=== PATIENT | female | born 1960 | race Caucasian/White ===

== ENCOUNTER 2017-08-01 11:29 | Emergency (ER) | payer BC ==
[~2017-08-01] VITALS: Ht 170.2 cm; Wt 68.0 kg
[2017-08-01] MEDS ORDERED: IV NORMAL SALINE 500 ML BAG IV ONE (11:45)
[2017-08-01 11:57] LABS: BASOPHILS % (AUTO) 0.3 % (0.0-2.0); EOSINOPHILS # (AUTO) 0.1 K/uL (0.0-0.7); EOSINOPHILS % (AUTO) 0.9 % (0.0-7.0); HEMATOCRIT 40.2 % (31.2-41.9); HEMOGLOBIN 13.1 g/dL (10.9-14.3); LYMPHOCYTES # (AUTO) 3.6 K/uL (20.0-40.0); LYMPHOCYTES % (AUTO) 32.2 % (20.5-51.5); MEAN CORPUSCULAR HEMOGLOBIN 29.2 uug (24.7-32.8); MEAN CORPUSCULAR HGB CONC 33 g/dL (32.3-35.6); MEAN CORPUSCULAR VOLUME 89.6 fL (75.5-95.3); MONOCYTES # (AUTO) 0.6 K/uL (2.0-10.0); NEUTROPHILS % (AUTO) 61.6 % (38.5-71.5); PLATELET COUNT (AUTO) 234 K/uL (179-408); RED BLOOD CELL COUNT(AUTO) 4.48 MIL/uL (3.63-4.92); WHITE BLOOD COUNT (AUTO) 11.3 K/uL (3.8-11.8)
--- NOTE | 2017-08-01 12:03 | NUR ---
OUT OF ER FOR CT.
[2017-08-01] MEDS ORDERED: TEMA15CA PO (12:05)
[2017-08-01] MEDS ORDERED: ONDA8TAB6 PO (12:05)
[2017-08-01] MEDS ORDERED: LEVO175T2 PO (12:05)
[2017-08-01] MEDS ORDERED: HYDR-548 PO (12:05)
[2017-08-01] MEDS ORDERED: DIAZ5TAB4 PO (12:05)
[2017-08-01] MEDS ORDERED: NYST5ORA PO (12:05)
[2017-08-01 12:07] LABS: ETHANOL < 3 MG/DL (0-0)
[2017-08-01 12:08] LABS: CARBON DIOXIDE 21 mmol/L (21-32); CHLORIDE 105 mmol/L (98-107); CREATININE 0.9 mg/dL (0.6-1.3); GLUCOSE 215 mg/dL (74-106); POTASSIUM 2.9 mmol/L (3.5-5.1); UREA NITROGEN, BLOOD 22 mg/dL (7-18)
[2017-08-01 12:21] LABS: ALANINE AMINOTRANSFERASE 20 U/L (14-59); ALKALINE PHOSPHATASE 89 U/L (50-136); ASPARTATE AMINOTRANSFERASE 21 U/L (15-37); BILIRUBIN,DIRECT 0.1 mg/dL (0.0-0.2); BILIRUBIN,TOTAL 0.4 mg/dL (0.2-1.0); TOTAL PROTEIN, SERUM 6.6 g/dL (6.4-8.2)
[2017-08-01 12:22] LABS: PHENOBARBITAL < 1.0 ug/mL (15.0-39.0); PHENYTOIN (DILANTIN) < 0.5 ug/mL (10.0-20.0)
--- NOTE | 2017-08-01 12:31 | NUR ---
PT IS AWAKE AND VERBALLY RESPONSIVE. UNABLE TO RECALL EVENTS BUT ABLE TO RECALL THING PRIOR TO SEIZURES. PT'S ROOM MATE AT THE BEDSIDE.
[2017-08-01 12:59] LABS: *BILIRUBIN,URIN NEGATIVE (NEGATIVE); *BLOOD, URINE 2+ (NEGATIVE); *CLARITY,URINE CLEAR (CLEAR); *COLOR,URINE LIGHT YELLOW (YELLOW); *KETONES,URINE NEGATIVE (NEGATIVE); *PROTEIN,URINE NEGATIVE (NEGATIVE); *UROBILINOGEN,URINE 0.2 E.U./dl (NORMAL); LEUKOCYTE ESTERASE ,URINE NEGATIVE (NEGATIVE); NITRITE, URINE NEGATIVE (NEGATIVE); PH,URINE 5.5 (5.0-8.0); UGLUCOSE TRACE (NEGATIVE)
[2017-08-01] MEDS ORDERED: PHENYTOIN SODIUM EXTENDED 100 MG CAPSULE.SA PO ONE ×2 (13:00→13:55)
[2017-08-01] MEDS ORDERED: IV NORMAL SALINE 1000 ML BAG IV ONE (13:00)
[2017-08-01 13:07] LABS: BACTERIA,URINE NONE SEEN /HPF (NONE SEEN); SQUAMOUS EPITHELIAL CELL,UR FEW /HPF (NONE SEEN); WBC,URINE 0-3 /HPF (0-3)
[2017-08-01 13:08] LABS: *AMPHETAMINE, URINE NEGATIVE (NEGATIVE); *BARBITURATE, URINE NEGATIVE (NEGATIVE); *CANNABINOID, URINE NEGATIVE (NEGATIVE); *COCCAINE, URINE NEGATIVE (NEGATIVE); *OPIATE, URINE POSITIVE (NEGATIVE); *PHENCYCLIDINE SCREEN,URINE NEGATIVE (NEGATIVE)
[2017-08-01] MEDS ORDERED: ONDANSETRON ODT 4 MG TAB.RAPDIS SL ONE (14:00)
[2017-08-01] MEDS ORDERED: ONDANSETRON ODT 4 MG TAB.RAPDIS ONE (14:11)
[2017-08-01 14:20] VITALS: BP 140/89
--- NOTE | 2017-08-01 14:21 | NUR ---
IV removed. Catheter intact and site benign. Pressure and 4x4 gauze applied to site. No bleeding noted.
--- NOTE | 2017-08-01 14:21 | NUR ---
Patient discharged to home in stable conditon. Written and verbal after care instructions given. Patient verbalizes understanding of instructions.
== END 2017-08-01 14:22 | disposition home or self-care (01) ==
LOC: ER 11:29
DX: R56.9 Unspecified convulsions (principal)
CPT/HCPCS: 36415; 70450; 71010; 80184; 80307; 83605; 85025; 85730; 87040; 93005; A4663; G0480; J7030; J7040; Q0162